=== PATIENT | female | born 1935 | race Caucasian/White ===

== ENCOUNTER → 2016-10-09 | Outpatient (CLI) | payer BC ==
[~2016-10-09] MED LIST: ATEN-173 PO; CALC-354 PO; CHOL100010 PO; COEN90TA PO; DEXL60CA4 PO; GLUCTAB7 PO; LORA-741 PO; METHTAB PO; PSYL48.59 PO; ROSU5TAB PO
[2016-10-09 08:34] LABS: CHOLESTEROL/HDL RATIO 3.1
== END | disposition home or self-care (01) ==
LOC: C.LABFOXMH 07:56
PROVIDERS: ATTEND Internal Medicine
DX: E78.00 Pure hypercholesterolemia, unspecified (principal)

== ENCOUNTER → 2016-11-06 | Outpatient (CLI) | payer BC ==
--- NOTE | 2016-11-06 15:14 | DIAGNOSTIC IMAGING REPORT ---
KUB CLINICAL HISTORY: Nephrolithiasis COMPARISON STUDY: 05/04/2016 FINDINGS: There is no pathologic bowel dilatation. Degenerative changes are present within the spine. There are surgical clips within the right upper quadrant consistent with a prior cholecystectomy. There is a 4 mm linear calcification projected over the lower pole the right kidney, likely representing a calculus. There are postsurgical changes with sutures visualized within the right mid abdomen. IMPRESSION: Suspected 4 mm right renal calculus. Electronically signed by: Tyler Walsh M.D. 11/06/2016 3:13 PM Dictated Date/Time: 11/06/2016 3:12 PM
== END | disposition home or self-care (01) ==
LOC: C.RAD 14:11
PROVIDERS: ATTEND Urology
DX: N20.0 Calculus of kidney (principal)

== ENCOUNTER → 2016-11-11 | Outpatient (CLI) | payer BC ==
[2016-12-30 13:16] LABS: O&P SOURCE STOOL
== END | disposition home or self-care (01) ==
LOC: C.LABSPEC 11:25
PROVIDERS: ATTEND Internal Medicine
DX: R19.5 Other fecal abnormalities (principal)

== ENCOUNTER → 2017-02-05 | Outpatient (CLI) | payer BC | LOC: C.LABFOXMH 08:46 | PROVIDERS: ATTEND Internal Medicine | DX: E78.00 Pure hypercholesterolemia, unspecified (principal) ==

== ENCOUNTER → 2017-02-24 | Outpatient (CLI) | payer BC ==
--- NOTE | 2017-02-24 13:22 | DIAGNOSTIC IMAGING REPORT ---
ULTRASOUND SOFT TISSUES NECK CLINICAL HISTORY: Melanoma. Palpable nodule in the left neck. COMPARISON STUDY: CT scan of the neck dated to. FINDINGS: Real-time, grayscale, and color flow sonography of the soft tissues of the left neck is performed at the site of interest specified by the patient. There is a small hypoechoic lymph node identified the site of interest. This measures 0.7 x 0.5 x 0.7 cm. Although this appears to maintain a fatty hilum the cortex appears slightly thickened. No additional regional lymph nodes are seen. No fluid collection is identified. IMPRESSION: There is a subcentimeter lymph node identified at the site of interest which appears to demonstrate mild cortical thickening. This is not clearly abnormal and may be on a reactive basis. Clinical follow-up is recommended. If this enlarges or fails to resolve a repeat examination with fine-needle aspiration could be considered. Electronically signed by: Adriel Murillo M.D. 02/24/2017 1:21 PM Dictated Date/Time: 02/24/2017 1:18 PM
== END | disposition home or self-care (01) ==
LOC: C.ULTR 12:45
PROVIDERS: ATTEND Dermatology
DX: Z85.820 Personal history of malignant melanoma of skin (principal)

== ENCOUNTER → 2017-03-05 | Outpatient (CLI) | payer BC ==
--- NOTE | 2017-03-05 12:18 | DIAGNOSTIC IMAGING REPORT ---
NECK ULTRASOUND CLINICAL HISTORY: Melanoma. Left-sided neck node. COMPARISON STUDY: Neck ultrasound February 24, 2017. TECHNIQUE: Sonography of the neck was performed. FINDINGS: Sonography of the right and left neck was performed. No suspicious lymph nodes were identified. The patient presented today for biopsy of a left sided cervical lymph node shown on exam of February 24, 2017. This node was not identified on this exam. There were multiple benign-appearing cervical lymph nodes. After discussion with the patient, it was decided to not proceed with biopsy given the benign appearance of these lymph nodes. IMPRESSION: No suspicious cervical lymph nodes. The left cervical lymph node shown on exam of February 24, 2017 was not identified on today's ultrasound. After discussion with the patient, it was decided to not proceed with biopsy at this time given the benign appearance of the cervical lymph nodes. This was discussed with Dr. Persaud's nurse at time of the procedure. Electronically signed by: Fermin Davidson M.D. 03/05/2017 12:16 PM Dictated Date/Time: 03/05/2017 12:12 PM
== END | disposition home or self-care (01) ==
LOC: C.ULTR 10:54
PROVIDERS: ATTEND Dermatology
DX: Z85.820 Personal history of malignant melanoma of skin (principal)

== ENCOUNTER → 2017-04-22 | Day surgery (SDC) | payer BC | END | disposition home or self-care (01) | LOC: C.ACU 14:52 | PROVIDERS: ATTEND Colon & Rectal Surgery | DX: Z43.3 Encounter for attention to colostomy (principal) ==

== ENCOUNTER → 2017-05-18 | Outpatient (CLI) | payer BC ==
[2017-05-18 13:01] VITALS: BP 119/67; PULSE 60; TEMP 36.7; O2SAT 96
--- NOTE | 2017-05-18 14:25 | Radiation Oncology Follow-Up ---
Radiation Oncology Follow-Up Date of Visit May 18, 2017. Reason For Visit Annual follow-up Radiation Completion Date finished 09-27-2012 Diagnosis (1) Rectal carcinoma Status: Resolved Onset Date: 06/30/2012 Histology Subtype: adenocarcinoma Permanent Comment: Family history of rectal cancer Rectal bleeding colonoscopy and biopsy of the low-lying localized rectal carcinoma, clinical stage TIII NX M0 Status post combined neoadjuvant radiation chemotherapy Radiation completed 09/27/2012 received 5040 cGy Chemotherapy comprised of Xeloda Status post AP resection 04/13/2013 complete resolution of neoplasm of the rectum Status post completion of adjuvant chemotherapy with Xeloda Status post melanoma of the scalp 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 She is followed by Dr. Ponce. He has prescribed medication which greatly helps her urgency and bladder spasms. She states that if she forgets to take a pill these symptoms will recur. She denies any hematuria. She denies any pain in the area of the rectum. She continues to have issues with her stoma. These are unchanged from previous. The skin around the stoma becomes irritated and intermittently has bleeding. She is followed closely by gastroenterology. She had a colonoscopy 03/03/2017. She has a patent and 2 and ileocolonic anastomosis. There is no signs of recurrence. She had a small polyp in the ascending colon. The path report revealed that this was a tubular adenoma. A session [id number]. She is followed closely by medical oncology in [place] as well as dermatology. There have been no signs of recurrence of the melanoma of the scalp. She was found to have a small right renal calculus. That is also being followed by Dr. Ponce. She is doing well with her ostomy appliance. She stated she is not using a new company called [employer]. They have a wonderful support line. She can call their when she has any difficulties. Allergies Coded Allergies: Isoniazid (Verified Allergy, Mild, FEVER/FLUID RETENTION/REDNESS, 04/18/14) Latex1 -Allergic Contact Dermititis (Unverified Allergy, Unknown, RASH, 07/21) Home Medications Scheduled Atenolol (Tenormin), 12.5 MG PO DAILY Coenzyme Q10 (Ubidecarenone) (Co Q10), 1 TAB PO DAILY Dexlansoprazole (Dexilant), 60 MG PO DAILY Jifyzooyuvn-Hyqlxlttied-Zfm C- (Glucosamine Chondroitin), 1 TABLET PO DAILY Ywyearffqtq-Nsgqh-Ruexkowmk Bl (Hyophen), 1 TAB PO DAILY Psyllium (Metamucil), 2 TSP PO DAILY Rosuvastatin Calcium (Crestor), 5 MG PO 3XWK Scheduled PRN Lorazepam (Ativan), 0.5 MG PO DAILY PRN Review of Systems Gastrointestinal: Symptoms: Ostomy GI Comments: lots of leakage from ostomy site Oral: Symptoms: No Problems Respiratory: Symptoms: WNL Urinary: Symptoms: Incontinence Comments: " has a kidney stone , urgency, nocturia every 1- 2 hrs" Skin: Other Skin Symptoms: " alot of skin iritation around the ostomy site " Physical Exam Vital Signs Date Time Temp Pulse Resp B/P (MAP) Pulse Ox O2 Delivery O2 Flow Rate FiO2 05/18/17 13:01 36.7 60 16 119/67 96 Pain: Side: Bilateral Pain Location: None Patient Pain Scale: 0 - 10 Initial Pain Intensity: 0.0 Fatigue: None General Appearance: no apparent distress, + pertinent finding (well-healed graft areas of her scalp. With no recurrence.) Eyes: normal inspection, EOMI ENT: normal ENT inspection, hearing grossly normal Neck: no adenopathy, thyroid normal Respiratory/Chest: lungs clear, no respiratory distress, no accessory muscle use Cardiovascular: regular rate, rhythm, no gallop, no murmur Abdomen: non tender, soft, + pertinent finding (ostomy is functioning well. Currently no blood in the ostomy bag.) Anal / Rectum: Anus is absent. There is slight telangiectasia of the skin in the gluteal fold. There are no masses or tenderness. Extremities: no pedal edema Neurologic/Psychiatric: no motor/sensory deficits, alert, normal mood/affect Skin: warm/dry Laboratory Studies Test 03/19/17 11:39 White Blood Count 7.36 K/uL (4.8-10.8) Red Blood Count 4.57 M/uL (4.2-5.4) Hemoglobin 13.3 g/dL (12.0-16.0) Hematocrit 40.5 % (37-47) Mean Corpuscular Volume 88.6 fL (80-100) Mean Corpuscular Hemoglobin 29.1 pg (25-34) Mean Corpuscular Hemoglobin Concent 32.8 g/dl (32-36) Platelet Count 249 K/uL (130-400) Mean Platelet Volume 9.2 fL (7.4-10.4) Neutrophils (%) (Auto) 72.8 % Lymphocytes (%) (Auto) 15.2 % Monocytes (%) (Auto) 9.6 % Eosinophils (%) (Auto) 1.5 % Basophils (%) (Auto) 0.4 % Neutrophils # (Auto) 5.35 K/uL (1.4-6.5) Lymphocytes # (Auto) 1.12 K/uL (1.2-3.4) Monocytes # (Auto) 0.71 K/uL (0.11-0.59) Eosinophils # (Auto) 0.11 K/uL (0-0.5) Basophils # (Auto) 0.03 K/uL (0-0.2) RDW Standard Deviation 45.5 fL (36.4-46.3) RDW Coefficient of Variation 13.9 % (11.5-14.5) Immature Granulocyte % (Auto) 0.5 % Immature Granulocyte # (Auto) 0.04 K/uL (0.00-0.02) Sodium Level 142 mmol/L (136-145) Potassium Level 4.1 mmol/L (3.5-5.1) Chloride Level 106 mmol/L (98-107) Carbon Dioxide Level 29 mmol/L (21-32) Anion Gap 7.0 mmol/L (3-11) Blood Urea Nitrogen 17 mg/dl (7-18) Creatinine 0.60 mg/dl (0.60-1.20) Est Creatinine Clear Calc Drug Dose 64.1 ml/min Estimated GFR () 99.8 Estimated GFR (Non- 86.1 BUN/Creatinine Ratio 28.6 (10-20) Random Glucose 79 mg/dl (70-99) Calcium Level 9.6 mg/dl (8.5-10.1) Total Bilirubin 0.4 mg/dl (0.2-1) Aspartate Amino Transferase (AST) 22 U/L (15-37) Alanine Aminotransferase (ALT) 23 U/L (12-78) Alkaline Phosphatase 118 U/L (45-117) Lactate Dehydrogenase 212 U/L (84-246) Total Protein 7.3 gm/dl (6.4-8.2) Albumin 3.5 gm/dl (3.4-5.0) Globulin 3.8 gm/dl (2.5-4.0) Albumin/Globulin Ratio 0.9 (0.9-2) Carcinoembryonic Antigen 0.6 ng/ml (0-2.5) Additional Studies CEA titers were reviewed that have been performed over the past several years. Assessment & Plan Plan: Continue follow-up with medical oncology, dermatology, and urology. She continues on the medication from urology for the bladder urgency and nocturia. A follow-up appointment with our office was not given. She may call if she has any questions or concerns we be happy to see her. Total Time In Follow-Up I spent 25 minutes speaking to the patient performing examination. I spent 15 minutes reviewing information in completing this note. Copy To Christopher Mijares M.D.; Sánchez Jones M.D.; Kassandra Kauffman CRNP; Juan Miguel Ponce M.D.
== END | disposition home or self-care (01) ==
LOC: C.ONC 12:57
PROVIDERS: ATTEND Physician Assistant Medical
DX: Z08 Encounter for follow-up examination after completed treatment for malignant neoplasm (principal); Z92.3 Personal history of irradiation; Z85.048 Personal history of other malignant neoplasm of rectum, rectosigmoid junction, and anus

== ENCOUNTER → 2017-09-08 | Outpatient (CLI) | payer BC ==
[~2017-09-08] MED LIST changes: -CALC-354 PO; -CHOL100010 PO
--- NOTE | 2017-10-29 11:05 | CODING QUERY NO DIAGNOSIS ---
TREATMENT RENDERED WITHOUT A DIAGNOSIS : 36 To promote full compliance with coding requirements relating to patient care, physician participation is requested in all cases of head of store operations uncertainty. Please assist us with providing a diagnosis/symptom for the test(s) below: A diagnosis/symptom was not documented on your Order. A valid diagnosis/symptom is required to bill all insurances. Please remember that we are unable to code a diagnosis of rule out, probable, possible, questionable, or suspected. Tests that require a diagnosis: DOS: 09/08/17 * URINE CULTURE CLEAN DIAGNOSIS: Provider Signature: Date: Thank you Alena Guerra Health Information Management Once completed, please kindly fax back to [phone] For questions please call [phone]
== END | disposition home or self-care (01) ==
LOC: C.LABFOXMH 15:03
PROVIDERS: ATTEND Internal Medicine Hospice and Palliative Medicine
DX: R35.0 Frequency of micturition (principal)

== ENCOUNTER → 2017-10-27 | Outpatient (CLI) | payer BC ==
[2017-10-27 10:07] LABS: HEMATOCRIT 38.3 % (37-47); HEMOGLOBIN 13.1 g/dL (12.0-16.0); MEAN CELL VOLUME 88.9 fL (80-100); MEAN CORPUSCULAR HEMOGLOBIN 30.4 pg (25-34); MEAN CORPUSCULAR HGB CONC 34.2 g/dl (32-36); MEAN PLATELET VOLUME 9.7 fL (7.4-10.4); PLATELET COUNT 219 K/uL (130-400); RED CELL DISTRIBUTION WIDTH CV 13.7 % (11.5-14.5); RED CELL DISTRIBUTION WIDTH SD 44.7 fL (36.4-46.3); WHITE BLOOD COUNT 5.24 K/uL (4.8-10.8)
[2017-10-27 10:13] LABS: ALBUMIN 3.3 gm/dl (3.4-5.0); ALT/SGPT 19 U/L (12-78); AST/SGOT 23 U/L (15-37); BLOOD UREA NITROGEN 15 mg/dl (7-18); CALCIUM 8.9 mg/dl (8.5-10.1); CARBON DIOXIDE 27 mmol/L (21-32); CREATININE 0.65 mg/dl (0.60-1.20); GLUCOSE 95 mg/dl (70-99); SODIUM 143 mmol/L (136-145)
[2017-10-27 10:24] LABS: ALKALINE PHOSPHATASE 111 U/L (45-117); CHOLESTEROL 159 mg/dl (0-200); LDL CHOLESTEROL CALCULATED 78 mg/dl; TOTAL PROTEIN 6.9 gm/dl (6.4-8.2)
== END ==
LOC: C.LABFOXMH 09:21
PROVIDERS: ATTEND Internal Medicine
DX: E78.5 Hyperlipidemia, unspecified (principal); C18.9 Malignant neoplasm of colon, unspecified

== ENCOUNTER → 2017-11-01 | Outpatient (CLI) | payer BC ==
[~2017-11-01] MED LIST changes: +OPTIRAY 320 IV PRN
--- NOTE | 2017-11-01 12:55 | DIAGNOSTIC IMAGING REPORT ---
CT OF THE HEAD WITH AND WITHOUT CONTRAST CLINICAL HISTORY: History of melanoma and rectal carcinoma. COMPARISON STUDY: MRI of the brain March 23, 2016. TECHNIQUE: Axial images of the head were obtained before and after intravenous administration of 120 cc Optiray 320 IV. FINDINGS: No acute intracranial hemorrhage, midline shift or mass affect is present. Ventricular system is stable. Basilar cisterns are patent. There are no extra axial collections. Go-white differentiation is maintained. There may be an old lacunar infarct within the right basal ganglia/internal capsule. No intracranial mass or pathologic enhancement is identified. A left frontoparietal scalp defect is postsurgical. This is unchanged since MRI of March 23, 2016. IMPRESSION: 1. No evidence of metastatic disease. 2. No acute intracranial findings. 3. Left frontoparietal scalp defect which is postsurgical. This is unchanged since MRI of March 23, 2016. Electronically signed by: Fermin Davidson M.D. 11/01/2017 12:54 PM Dictated Date/Time: 11/01/2017 12:49 PM
--- NOTE | 2017-11-01 13:05 | DIAGNOSTIC IMAGING REPORT ---
SOFT TISSUE NECK WITH CLINICAL HISTORY: 82 years-old Female presenting with Z85.8 MALIGNANT NEOPLASM OF SKIN, additional history of rectal cancer. TECHNIQUE: Multidetector CT of the neck was performed after the administration of intravenous contrast. IV contrast: 120 mL of Optiray 320. A dose lowering technique was used consistent with the principles of ALARA (as low as reasonably achievable). COMPARISON: 10/22/2015. CT DOSE (mGy.cm): The estimated cumulative dose is 2121.[address] abdomen and pelvis. FINDINGS: Clinical Aide topogram: Cholecystectomy clips. No focal abnormality of the cutis. No lymphadenopathy. Atherosclerosis of aortic arch with patent origins of the cervical vessels. Bilateral common carotid arteries patent. Calcified atherosclerotic plaque at the bilateral carotid bulbs with resultant narrowing of the proximal right internal carotid artery (approximately 50% stenosis; series 10 image 109) and proximal left internal carotid artery (less than 50% stenosis; series 10 image 114). Evaluation of the carotid arteries limited by amalgam and streak artifact. Chronic occlusion of the left vertebral artery from its origin to the level of C2, where it is reconstituted by collateral flow. The intradural portion of the left vertebral artery remains diminutive secondary to atherosclerotic plaque. Right dominant vertebral artery. Limited intracranial evaluation demonstrates atherosclerosis of the cavernous segments of the carotid arteries without significant narrowing. Dural venous sinuses patent. Bilateral burns paiute lenses are absent. Paranasal sinuses and mastoid air cells clear. Airway is patent. No effacement of the valleculae or piriform sinuses. Parapharyngeal fat planes nondisplaced. Few subcentimeter nodules noted in the thyroid. Lung apices demonstrate scarring bilaterally. Degenerative changes of the cervical spine. IMPRESSION: 1. No focal abnormality of the skin to suggest a site of disease. 2. No lymphadenopathy or evidence of metastatic disease in the neck. 3. Atherosclerosis with narrowing of the bilateral internal carotid arteries and chronic occlusion of the left vertebral artery. Electronically signed by: Zafar Dai M.D. 11/01/2017 1:04 PM Dictated Date/Time: 11/01/2017 12:57 PM
--- NOTE | 2017-11-01 13:12 | DIAGNOSTIC IMAGING REPORT ---
ABDOMEN AND PELVIS CT WITH IV AND ORAL CONTRAST CT DOSE: 2121.96 mGy.cm HISTORY: History of rectal carcinoma and melanoma. Follow-up exam. Z85.8 MALIGNANT NEOPLASM OF SKIN TECHNIQUE: Multiaxial CT images of the abdomen and pelvis were performed following the use of intravenous and oral contrast. A dose lowering technique was utilized adhering to the principles of ALARA. COMPARISON STUDY: CT abdomen and pelvis 10/22/2015. FINDINGS: Bibasilar subpleural reticular opacities with subpleural cystic changes again noted compatible with interstitial lung disease. There is no pneumatosis or pneumoperitoneum identified. Imaged inferior cardiac chambers are mildly enlarged. Coronary arterial disease. Prior cholecystectomy. 7 mm low attenuating lesion of the inferior right hepatic lobe is indeterminate, however is unchanged suggesting hepatic cyst. Spleen, pancreas and adrenal glands are within normal limits. 5 mm linear calcification of the interpolar right kidney is noted with adjacent area of cortical scarring. External renal pelvis on the right is redemonstrated. Left kidney is unremarkable. 5 mm low attenuating lesion of the superior pole left kidney suggests renal cyst. There is circumferential wall thickening of the urinary bladder. Ill-defined soft tissue density within the region of the vagina and cervix measures up to approximately 3.5 x 3.9 cm and causes mass effect upon the floor of the urinary bladder partially displaces it to the right. No additional focal pelvic abnormality identified. Moderate mixed plaquing of the aorta. No bulky adenopathy. There is no bowel obstruction identified. Left hemicolectomy noted with left lower quadrant diverting colostomy. Small fat filled periumbilical hernia. Bones appear intact without suspicious lytic or blastic bony lesions identified. Multilevel discogenic degenerative changes and facet arthropathy. Grade 1 anterolisthesis L4 on L5 likely secondary to underlying facet disease. No suspicious focal soft tissue mass lesions identified. IMPRESSION: 1. Ill-defined soft tissue attenuation within the distribution of the upper vagina and cervix is noted causing mild mass effect upon the floor of the urinary bladder. Correlate with gynecologic exam. 2. No pathologic adenopathy. 3. Prior cholecystectomy. 4. Additional findings as above. Electronically signed by: Rancho Haskins M.D. 11/01/2017 1:11 PM Dictated Date/Time: 11/01/2017 1:00 PM
--- NOTE | 2017-11-01 13:31 | DIAGNOSTIC IMAGING REPORT ---
CT OF THE CHEST WITH IV CONTRAST CLINICAL HISTORY: Melanoma. Rectal cancer. COMPARISON STUDY: Chest CT October 22, 2015. TECHNIQUE: Following IV administration of 120 mL of Optiray-320, helical axial images of the chest were obtained. Sagittal and coronal reconstructions were viewed as well as maximal intensity projections on an independent 3-D workstation. A dose lowering technique was utilized adhering to the principles of ALARA. FINDINGS: No enlarged axillary, mediastinal or hilar lymph nodes are present. There is no pericardial effusion. The heart is moderately enlarged. There is moderate coronary artery calcification. Central airways are patent. There is no pneumothorax or pleural effusion. Peripheral predominant subpleural reticulation has mildly progressed since exam of September 24, 2014. There are no suspicious osseous lesions within the bony thorax. The abdomen and pelvis will be reported separately. IMPRESSION: 1. No evidence of metastatic disease within the chest. 2. Mild progression of interstitial lung disease since exam of September 24, 2014. Electronically signed by: Fermin Davidson M.D. 11/01/2017 1:29 PM Dictated Date/Time: 11/01/2017 1:13 PM
== END | disposition home or self-care (01) ==
LOC: C.CTS 10:12
PROVIDERS: ATTEND Dermatology
DX: Z85.828 Personal history of other malignant neoplasm of skin (principal); R93.8 Abnormal findings on diagnostic imaging of other specified body structures; Z90.49 Acquired absence of other specified parts of digestive tract; J84.9 Interstitial pulmonary disease, unspecified; Z98.890 Other specified postprocedural states; I65.23 Occlusion and stenosis of bilateral carotid arteries; I65.02 Occlusion and stenosis of left vertebral artery; Z88.8 Allergy status to other drugs, medicaments and biological substances; Z88.6 Allergy status to analgesic agent; Z91.048 Other nonmedicinal substance allergy status

== ENCOUNTER → 2017-12-20 | Outpatient (CLI) | payer BC ==
[~2017-12-20] MED LIST changes: -OPTIRAY 320 IV PRN
== END | disposition home or self-care (01) ==
LOC: C.PAPS 16:22
PROVIDERS: ATTEND Obstetrics & Gynecology
DX: Z12.4 Encounter for screening for malignant neoplasm of cervix (principal)

== ENCOUNTER → 2017-12-28 | Outpatient (CLI) | payer BC ==
--- NOTE | 2017-12-28 12:07 | DIAGNOSTIC IMAGING REPORT ---
PELVIC ULTRASOUND CLINICAL HISTORY: Status post colostomy with resection of portion of colon and rectum. Pelvic radiation. Recent abnormal CT with possible upper vaginal mass. COMPARISON STUDY: CT of the abdomen and pelvis November 01, 2017. TECHNIQUE: Transabdominal and transvaginal sonography of the pelvis was performed. FINDINGS: Exam was compromised by suboptimal penetration. Neither ovary was visualized. The uterus measures 5.8 x 2.7 x 3.6 cm. Endometrium measures 3 mm in thickness. The myometrium is heterogeneous and contains several calcifications. Trace fluid within the pelvis was noted. No upper vaginal mass or cervical mass was identified by sonography. The possible abnormality on CT of November 01, 2017 is similar appearance to exam of October 22, 2015 and likely reflects normal structures. IMPRESSION: 1. No cervical or upper vaginal mass identified by sonography. The possible abnormality on recent CT is similar to exam of October 22, 2015 and favors normal structures. 2. Nonvisualization of the ovaries. 3. No pelvic mass by sonography. Electronically signed by: Fermin Davidson M.D. 12/28/2017 12:05 PM Dictated Date/Time: 12/28/2017 12:01 PM
== END | disposition home or self-care (01) ==
LOC: C.ULTR 10:18
PROVIDERS: ATTEND Obstetrics & Gynecology
DX: R93.8 Abnormal findings on diagnostic imaging of other specified body structures (principal)